=== PATIENT | female | born 1955 | race Caucasian/White ===

== ENCOUNTER 2019-10-22 08:13 | Day surgery (SDC) | payer MEDICARE, MEDICAID ==
[~2019-10-22] VITALS: Ht 157.5 cm; Wt 83.8 kg
[2019-10-22] VITALS (13 sets, daily range): BP systolic 101–127; BP diastolic 47–72
[2019-10-22] MEDS ORDERED: normal saline 1000ml 1,000 ML IV SCH (08:40)
[2019-10-22 09:43] LABS: BASOPHILS # (AUTO) 0.2 X10'3 (0-0.2); BASOPHILS % (AUTO) 1.1 % (0-1); EOSINOPHILS # (AUTO) 0.3 X10'3 (0-0.9); EOSINOPHILS % (AUTO) 1.2 % (0-6); HEMATOCRIT 38.1 % (35.0-45.0); HEMOGLOBIN 12.5 g/dl (12.0-16.0); LYMPHOCYTES # (AUTO) 6.8 X10'3 (1.1-4.8); LYMPHOCYTES % (AUTO) 29.1 % (21-51); MEAN CORPUSCULAR HEMOGLOBIN 30.5 PG (27.0-31.0); MEAN CORPUSCULAR HGB CONC 32.8 g/dL (33.0-36.5); MEAN PLATELET VOLUME 10.3 FL (7.4-10.4); MONOCYTES # (AUTO) 1.5 X10'3 (0-0.9); MONOCYTES % (AUTO) 6.2 % (2-12); NEUTROPHILS # (AUTO) 14.7 X10'3 (1.8-7.7); NEUTROPHILS % (AUTO) 62.4 % (42-75); PLATELET COUNT 431 X10'3 (140-440); RED CELL DISTRIBUTION WIDTH 15.4 % (11.5-14.5); WHITE BLOOD COUNT 23.5 X10'3 (4.5-11.0)
[2019-10-22 09:49] LABS: ANION GAP 8 (8-16); BLOOD UREA NITROGEN 36 MG/DL (7-18); BUN/CREATININE RATIO 17.6 (6.6-38.0); CALCIUM 9.8 MG/DL (8.5-10.1); CHLORIDE 104 MMOL/L (99-107); CREATININE 2.04 MG/DL (0.40-0.90); GLUCOSE 86 MG/DL (70-104); SODIUM 138 MMOL/L (135-145); TOTAL CARBON DIOXIDE 25.9 MMOL/L (24-32); eGFR 25 ML/MIN
[2019-10-22 09:50] LABS: POTASSIUM 5.1 MMOL/L (3.5-5.1)
[2019-10-22] MEDS ORDERED: HYDR-4070 PO (09:52)
[2019-10-22] MEDS ORDERED: DRISDOL PO (09:52)
[2019-10-22] MEDS ORDERED: ARIP10TA15 PO (09:52)
[2019-10-22] MEDS ORDERED: ATEN50TA41 PO (09:52)
[2019-10-22] MEDS ORDERED: DOXE75CA3 PO (09:52)
[2019-10-22] MEDS ORDERED: ESCI20TA45 PO (09:52)
[2019-10-22] MEDS ORDERED: OMEP-50 PO (09:52)
[2019-10-22] MEDS ORDERED: PREG150C46 (09:52)
[2019-10-22] MEDS ORDERED: DIVA500T40 PO (09:52)
[2019-10-22] MEDS ORDERED: OLAN15TA17 PO (09:52)
[2019-10-22] MEDS ORDERED: midazolam 2 mg/2 ml injection ONE (11:11)
[2019-10-22] MEDS ORDERED: fentaNYL/PF 50MCG/1 ML 2ML syringe ONE (11:12)
[2019-10-22] MEDS ORDERED: HYDROcodone/acetaminophen 5mg/325mg tablet PO PRN ×2 (11:55)
[2019-10-22] MEDS ORDERED: morphine 4 MG/ML inj SYRINge IV PRN (11:55)
[2019-10-22] MEDS ORDERED: HYDROcodone/acetaminophen 5mg/325mg tablet PO ONE (12:20)
== END 2019-10-22 14:40 | disposition home or self-care (01) ==
LOC: SSTAY O 08:13
PROVIDERS: ATTEND Radiology Vascular & Interventional Radiology
DX: R91.8 Other nonspecific abnormal finding of lung field (principal); C34.12 Malignant neoplasm of upper lobe, left bronchus or lung; J44.9 Chronic obstructive pulmonary disease, unspecified; I10 Essential (primary) hypertension; E83.52 Hypercalcemia; E87.5 Hyperkalemia; Z86.711 Personal history of pulmonary embolism; Z99.81 Dependence on supplemental oxygen; Z86.19 Personal history of other infectious and parasitic diseases; Z90.49 Acquired absence of other specified parts of digestive tract; Z90.81 Acquired absence of spleen; Z98.890 Other specified postprocedural states; Z90.710 Acquired absence of both cervix and uterus; Z90.721 Acquired absence of ovaries, unilateral; Z88.0 Allergy status to penicillin; Z88.1 Allergy status to other antibiotic agents; Z88.8 Allergy status to other drugs, medicaments and biological substances; Z87.891 Personal history of nicotine dependence; Z11.59 Encounter for screening for other viral diseases
CPT/HCPCS: 32405; 36415; 71045; 77012; 80048; 85025; 87635; 88341; 88342; J2250; J3010; J7030; 88305; 99152; 99153

== ENCOUNTER 2020-03-30 08:33 | Day surgery (SDC) | payer MEDICARE, MEDICAID ==
[~2020-03-30] VITALS: Ht 157.5 cm; Wt 78.7 kg
[2020-03-30] VITALS (12 sets, daily range): BP systolic 99–124; BP diastolic 44–60
[~2020-03-30 08:33] MED LIST: ARIP10TA15 PO; ATEN50TA41 PO; DIVA500T40 PO; DOXE75CA3 PO; DRISDOL PO; ESCI20TA45 PO; HYDR-4070 PO; OLAN15TA17 PO; OMEP-50 PO; PREG150C46
[2020-03-30] MEDS ORDERED: normal saline 1000ml 1,000 ML IV SCH (09:25)
[2020-03-30] MEDS ORDERED: VITAMIN D PO (10:12)
[2020-03-30] MEDS ORDERED: EST1T PO (10:12)
[2020-03-30] MEDS ORDERED: METH-360 PO (10:12)
[2020-03-30] MEDS ORDERED: ACET-1025 PO (10:12)
[2020-03-30] MEDS ORDERED: ROSU10TA2 PO (10:12)
[2020-03-30] MEDS ORDERED: THEO600T PO (10:12)
[2020-03-30] MEDS ORDERED: ROPI0.252 PO (10:12)
[2020-03-30] MEDS ORDERED: FENO145T26 PO (10:12)
[2020-03-30] MEDS ORDERED: AMLO10TA13 PO (10:12)
[2020-03-30] MEDS ORDERED: HYDR-3972 PO (10:12)
[2020-03-30] MEDS ORDERED: ondansetron/PF 4mg/2ml inj IV ONE (10:35)
[2020-03-30 10:41] LABS: BASOPHILS # (AUTO) 0.2 X10'3 (0-0.2); BASOPHILS % (AUTO) 0.8 % (0-1); EOSINOPHILS # (AUTO) 0.2 X10'3 (0-0.9); HEMATOCRIT 36.1 % (35.0-45.0); HEMOGLOBIN 11.4 g/dl (12.0-16.0); LYMPHOCYTES # (AUTO) 4.1 X10'3 (1.1-4.8); LYMPHOCYTES % (AUTO) 17.8 % (21-51); MEAN CORPUSCULAR HGB CONC 31.5 g/dL (33.0-36.5); MEAN CORPUSCULAR VOLUME 91.9 FL (78-98); MEAN PLATELET VOLUME 9.1 FL (7.4-10.4); MONOCYTES % (AUTO) 4.2 % (2-12); NEUTROPHILS # (AUTO) 17.6 X10'3 (1.8-7.7); NEUTROPHILS % (AUTO) 76.2 % (42-75); PLATELET COUNT 974 X10'3 (140-440); RED BLOOD COUNT 3.93 X10'6 (4.20-5.60); RED CELL DISTRIBUTION WIDTH 16.1 % (11.5-14.5); WHITE BLOOD COUNT 23.1 X10'3 (4.5-11.0)
--- NOTE | 2020-03-30 13:33 | NUR ---
Pt left floor for procedure.
[2020-03-30] MEDS ORDERED: midazolam 2 mg/2 ml injection ONE (13:39)
[2020-03-30] MEDS ORDERED: fentaNYL/PF 50MCG/1 ML 2ML syringe ONE (13:39)
[2020-03-30] MEDS ORDERED: heparin sodium, porcine/PF 100unit/ml 5ML syringe ONE (14:33)
[2020-03-30] MEDS ORDERED: LIDOcaine 1%/PF 5ML 10 MG/ML VIAL ONE (14:33)
[2020-03-30] MEDS ORDERED: sodium chloride 0.45% 1,000 ML IV SCH (15:30)
[2020-03-30] MEDS ORDERED: HYDROcodone/acetaminophen 10/325mg tab PO ONE (15:35)
--- NOTE | 2020-03-30 15:53 | NUR ---
Pt back in room. Pain medication being administered as ordered. MD Miguel called, states pt does not need 1/2NS order. New order to continue NS order as ordered. Pt sitting up in bed eating late lunch tray. Will continue to monitor.
== END 2020-03-30 16:25 | disposition home or self-care (01) ==
LOC: SSTAY O 08:33
PROVIDERS: ATTEND Radiology Diagnostic Radiology
DX: C34.12 Malignant neoplasm of upper lobe, left bronchus or lung (principal); Z88.0 Allergy status to penicillin; Z88.1 Allergy status to other antibiotic agents; Z88.8 Allergy status to other drugs, medicaments and biological substances; Z20.828 Contact with and (suspected) exposure to other viral communicable diseases; J44.9 Chronic obstructive pulmonary disease, unspecified; Z86.19 Personal history of other infectious and parasitic diseases; I10 Essential (primary) hypertension; E83.52 Hypercalcemia; E87.5 Hyperkalemia; Z86.711 Personal history of pulmonary embolism; Z90.49 Acquired absence of other specified parts of digestive tract; Z90.710 Acquired absence of both cervix and uterus; Z98.890 Other specified postprocedural states; Z90.81 Acquired absence of spleen; Z90.721 Acquired absence of ovaries, unilateral; Z87.891 Personal history of nicotine dependence
CPT/HCPCS: 32405; 36415; 36561; 71045; 76937; 77001; 77012; 85025; 87635; 99152; 99153; C1769; C1788; C1894; C9803; J1642; J2250; J2405; J3010; J7030